=== PATIENT | male | born 1950 | race Caucasian/White ===

== ENCOUNTER 2017-01-08 12:02 | Emergency (ER) ==
[2017-01-08] MEDS ORDERED: TENIVAC IM ONE (12:06)
[2017-01-08] MEDS ORDERED: LIDOCAINE 1 % AMP 5 ML (SUTURES) SUBCUT STA (12:06)
[2017-01-08 12:10] VITALS: BP 149/88; TEMP 96.6; BMI 33.4
--- NOTE | 2017-01-08 12:26 | ED.PDOC ---
General ED Provider: Dr. RUTH GIBBS-ER Chief Complaint: Hand Laceration Stated Complaint: i cut it on a carbon grinder Time Seen by Physician: 12:10 Mode of Arrival: Walk-In Information Source: Patient, Family Exam Limitations: No limitations Nursing and Triage Documentation Reviewed and Agree: Yes Skin Complaint Exam - Laceration/Abrasion/Hand Complaint/Exam Location of Injury: Left, Hand Mechanism of Injury: Laceration Onset/Duration: one hour Symptoms Are: Still present Initial Severity: Mild Current Severity: Mild Aggravating: Movement Alleviating: Compression Differential Diagnoses: Laceration Review of Systems - Review Of Systems Constitutional: Reports: No symptoms Eyes: Reports: No symptoms Ears, Nose, Mouth, Throat: Reports: No symptoms Respiratory: Reports: No symptoms Cardiac: Reports: No symptoms GI: Reports: No symptoms : Reports: No symptoms Musculoskeletal: Reports: No symptoms Skin: Reports: No symptoms Neurological: Reports: No symptoms Endocrine: Reports: No symptoms Hematologic/Lymphatic: Reports: No symptoms All Other Systems: Reviewed and Negative Past Medical History - Past Medical History Previously Healthy: Yes Endocrine: Reports: Unknown Cardiovascular: Reports: Unknown Respiratory: Reports: Unknown Hematological: Reports: Unknown Gastrointestinal: Reports: Unknown Genitourinary: Reports: Unknown Neuro/Psych: Reports: Unknown Musculoskeletal: Reports: Unknown Cancer: Reports: Unknown - Surgical History General Surgical History: Reports: Unknown - Family History Family History: Reports: Unknown - Social History Smoking Status: Former smoker Hx Substance Use: No Alcohol Screening: None Lives: With family - Immunizations Tetanus Shot up to Date: No Physical Exam - Physical Exam Appearance: Well-appearing, No pain distress, Well-nourished Pain Distress: Mild Eyes: KENYA, EOMI, Conjunctiva clear ENT: Ears normal, Nose normal, Oropharynx normal Neck: Supple Respiratory: Airway patent, Breath sounds clear, Breath sounds equal, Respirations nonlabored Cardiovascular: RRR, Pulses normal, No rub, No murmur GI/: Soft, Nontender, No masses, Bowel sounds normal, No Organomegaly Musculoskeletal: Normal strength, ROM intact, No edema, No calf tenderness Skin: Warm, Dry, Normal color Neurological: Sensation intact Psychiatric: Affect appropriate, Mood appropriate Procedures - Laceration/Wound Repair No standard instances Wound Description: Linear Wound Length (cm): 1.0cm left hand Wound Explored: Clean Wound Irrigated: Yes Wound Prep: Hibiclens Anesthesia: Lidocaine Wound Debrided: Minimal Wound Repaired With: Sutures Suture Size and Type: 3 prolene sutures 4.0 prolene Number of Sutures: 3 Layer Closure?: No Sterile Dressing Applied?: Yes Splint Applied?: No Sling Applied?: No Critical Care Note - Critical Care Note Total Time (mins): 0 Course - Course Orders, Labs, Meds: Orders Category Date Time Status Lidocaine HCl/Pf [Lidocaine 1 % Amp 5 ml (Sutures)] MEDS 01/08/17 12:06 Discontinued 5 ml SUBCUT ONCE STA Tetanus and Diphtheria Tox/Pf [Tenivac] MEDS 01/08/17 12:06 Discontinued 0.5 ml IM .ONCE ONE Medications Discontinued Medications Generic Name Dose Route Start Last Admin Trade Name Freq PRN Reason Stop Dose Admin Lidocaine HCl 5 ml 01/08/17 12:06 Lidocaine 1 % Amp 5 Ml (Sutures) SUBCUT 01/08/17 12:07 ONCE STA Tetanus/Diphtheria Toxoids Adsorbed 0.5 ml 01/08/17 12:06 Tenivac IM 01/08/17 12:07 .ONCE ONE Vital Signs: Temp Pulse Resp BP Pulse Ox 01/08/17 12:06 96.6 F L 109 H 20 149/88 H 96 Departure - Departure Time of Disposition: 12:26 Disposition: HOME SELF-CARE Discharge Problem: Laceration of hand Instructions: Laceration (ED) Condition: Good Pt referred to PMD for follow-up: Yes Additional Instructions: routine wound care --sutures out in 7days--call if any signs of infection Allergies/Adverse Reactions: Allergies bacitracin [From Neosporin ([id number])] Adverse Reaction (Verified 01/08/17 12:04) neomycin [From Neosporin ([id number])] Adverse Reaction (Verified 01/08/17 12 :04) polymyxin B [From Neosporin ([id number])] Adverse Reaction (Verified 12:04) Home Medications: Ambulatory Orders Metformin HCl 1,000 mg PO BID 01/08/17 Disposition Discussed With: Patient, Family
== END 2017-01-08 12:40 | disposition home or self-care (01) ==
LOC: ED 12:02
DX: S61.412A Laceration without foreign body of left hand, initial encounter (principal); W27.8XXA Contact with other nonpowered hand tool, initial encounter
CPT/HCPCS: 90471; 99283